=== PATIENT | male | born 1980 | race Caucasian/White ===

== ENCOUNTER 2017-03-30 10:54 | Emergency (ER) | payer OTHER | END 2017-03-30 12:34 | disposition left against medical advice (07) | LOC: UCCORT 10:54 | DX: M25.571 Pain in right ankle and joints of right foot (principal); M25.471 Effusion, right ankle; Z53.21 Procedure and treatment not carried out due to patient leaving prior to being seen by health care provider ==

== ENCOUNTER 2017-03-30 12:36 | Emergency (ER) | payer OTHER ==
[2017-03-30 13:03] VITALS: BP 156/96
--- NOTE | 2017-03-30 13:45 | UC ---
Lower Extremity/Ankle HPI - HPI Summary HPI Summary: This is a 37 yo male with h/o gout who presents with c/o ankle pain. He states that he rolled the ankle ~6d ago. He has been ambulating on it, but with a significant limp. His pain has been increasing significantly over the last few days. Denies associated fever or other acute illness - History of Current Complaint Chief Complaint: UCLowerExtremity Stated Complaint: RIGHT ANKLE PAIN - Allergies/Home Medications Allergies/Adverse Reactions: Allergies Allergy/AdvReac Type Severity Reaction Status Date / Time No Known Allergies Allergy Verified 03/30/17 12:55 Home Medications: Home Medications Ibuprofen [Advil] 800 mg PO ONCE PRN 03/30/17 [History Confirmed 03/30/17] PMH/Surg Hx/FS Hx/Imm Hx Previously Healthy: No - gout - Surgical History Surgical History: Yes Surgery Procedure, Year, and Place: BILATERAL CARPAL TUNNEL(age 23 yrs); TONSILECTOMY - Family History Known Family History: Positive: None, Hypertension, Other - MOTHER GOUT - Social History Alcohol Use: Rare Substance Use Type: None Smoking Status (MU): Current Every Day Smoker Type: Smokeless Tobacco Amount Used/How Often: 1can in 2 days Length of Time of Smoking/Using Tobacco: since age 25 Have You Smoked in the Last Year: Yes Review of Systems Constitutional: Negative Skin: Negative Eyes: Negative ENT: Negative Respiratory: Negative Cardiovascular: Negative Gastrointestinal: Negative Genitourinary: Negative Motor: Decreased ROM Neurovascular: Negative Musculoskeletal: Arthralgia, Decreased ROM Neurological: Negative Psychological: Negative All Other Systems Reviewed And Are Negative: Yes Physical Exam Triage Information Reviewed: Yes Appearance: Pain Distress - mild Vital Signs: Initial Vital Signs Temp 98 F 03/30/17 12:56 Pulse 83 03/30/17 12:56 Resp 18 03/30/17 12:56 BP 156/96 03/30/17 12:56 Pulse Ox 97 03/30/17 12:56 Vital Signs Reviewed: Yes Neck: Positive: Supple, Nontender, No Lymphadenopathy Respiratory: Positive: Chest non-tender, Lungs clear. Negative: Crackles, Rhonchi, Wheezing Cardiovascular: Positive: RRR, No Murmur Abdomen Description: Positive: Nontender Musculoskeletal: Positive: Other: - moderate ankle effusion, little focal TTP, no pain with dorsi/plantar flexion but pain with internal/external rotation Skin: Positive: Other - no ecchymosis or erythema. Negative: rashes Diagnostics - Laboratory Diagnostic Studies Completed/Ordered: XR R ankle - no fx, slight widening of the ankle mortise Lower Extremity Course/Dx - Course Course Of Treatment: This is a 37 yo gentleman who sustained a L ankle injury ~ 6 days ago who presented with increasing pain and inability to ambulate. XR shows no fx but evidence of widened mortise. Patient is quite convinced that his pain and swelling is not due to a ligamentous injury but rather a flare of his gout. Recommend immobilization of the L ankle, he does not fit in a CAM boot, but is willing to allow splinting. Ankle stirrup splint applied and referral initiated to ortho. - Differential Dx/Diagnosis Differential Diagnosis/HQI/PQRI: Arthritis, Contusion, Dislocation, Sprain, Strain Provider Diagnoses: 1. Acute L ankle pain - likely ligamentous injury Discharge - Discharge Plan Condition: Stable Disposition: HOME Prescriptions: Methylprednisolone [Medrol Dosepak 4 MG*] 4 mg PO .SEE ZAY INSTRUCTION #1 zay Patient Education Materials: Ankle Sprain (ED) Referrals: Dimitrios RIVERA,Ezequiel Howard [Primary Care Provider] - If Needed Monika Gonzalez MD [Medical Doctor] - 5 Days Additional Instructions: Instructions: 1. Stay in splint and use crutches to keep weight off of the ankle 2. Call the office of Dr Gonzalez to get an appointment for evaluation of possible ligamentous ankle injury 3. Take steroid medications as directed
--- NOTE | 2017-03-30 14:06 | RAD ---
INDICATION: Right ankle injury. TECHNIQUE: 3 views of the right ankle were obtained. FINDINGS: There is diffuse soft tissue swelling. No fracture is seen. There appears to be mild widening of the ankle mortise. IMPRESSION: DIFFUSE SOFT TISSUE SWELLING AND MILD WIDENING OF THE ANKLE MORTISE SUGGESTING THE POSSIBILITY OF UNDERLYING LIGAMENT INJURY. RECOMMEND ORTHOPEDIC CONSULTATION.
[2017-03-30] MEDS ORDERED: Ketorolac INJ* 30 MG/ML 1 ML VIAL IM ONE (14:24)
== END 2017-03-30 15:20 | disposition home or self-care (01) ==
LOC: UCCORT 12:36
DX: M25.571 Pain in right ankle and joints of right foot (principal); F17.210 Nicotine dependence, cigarettes, uncomplicated
CPT/HCPCS: 96372; 99212; G0463; J1885

== ENCOUNTER 2018-01-31 11:26 | Emergency (ER) | payer OTHER ==
--- NOTE | 2018-01-31 12:06 | UC ---
Lower Extremity/Ankle HPI - HPI Summary HPI Summary: Patient is complaining of sudden onset of pain and swelling to the top of his left foot into his left ankle. It began a week ago. He states that he has a history of gout mainly in the other foot - his great toe. He notes the onset this feels the same as gout. He has self treated with [id number] anti- inflammatory without relief. He notes that since the onset the top of the foot was itching. He itched the site aggressively and got an abrasion. He denies any fever or chills. He denies any rash. Does admit the area feels warm. No hx of injury. Patient states that he was treated with allopurinol in the past; however, he was unable to tolerate this. He states that the only thing that seems to work when he gets this bad is prednisone, " it is beyond indocin". States can usually control his gout with diet. - History of Current Complaint Hx Obtained From: Patient Onset/Duration: Sudden Onset Pain Intensity: 8 Aggravating Factor(s): Standing, Ambulation Alleviating Factor(s): Rest Able to Bear Weight: Yes - Risk Factors Septic Arthritis Risk Factor: Negative <Cecily Winchester - Last Filed: 01/31/18 12:54> <Bj Goodman - Last Filed: 01/31/18 13:20> - History of Current Complaint Chief Complaint: UCLowerExtremity Stated Complaint: LEFT FOOT/ANKLE COMPLAINT Time Seen by Provider: 01/31/18 11:51 - Allergies/Home Medications Allergies/Adverse Reactions: Allergies Allergy/AdvReac Type Severity Reaction Status Date / Time No Known Allergies Allergy Verified 01/31/18 11:46 Home Medications: Home Medications Multivitamin [Multiple Vitamins] 1 tab PO DAILY 01/31/18 [History Confirmed ] Naproxen TAB* [Naprosyn 250 mg TAB*] 500 mg PO Q8H PRN 01/31/18 [History Confirmed 01/31/18] PMH/Surg Hx/FS Hx/Imm Hx - Additional Past Medical History Additional PMH: gout - Surgical History Surgical History: Yes Surgery Procedure, Year, and Place: BILATERAL CARPAL TUNNEL(age 23 yrs); TONSILECTOMY - Family History Known Family History: Positive: None, Hypertension, Other - MOTHER GOUT - Social History Occupation: Employed Full-time Alcohol Use: Rare Substance Use Type: None Smoking Status (MU): Current Every Day Smoker Type: Smokeless Tobacco Amount Used/How Often: 1can in 2 days Length of Time of Smoking/Using Tobacco: since age 25 Have You Smoked in the Last Year: Yes - Immunization History Vaccination Up to Date: Yes <Cecily Winchester - Last Filed: 01/31/18 12:54> Review of Systems Constitutional: Negative Skin: Negative Eyes: Negative ENT: Negative Respiratory: Negative Cardiovascular: Negative Gastrointestinal: Negative Genitourinary: Negative Motor: Negative Neurovascular: Negative Musculoskeletal: Other: - pain/swelling L foot with swelling L ankle Neurological: Negative Psychological: Negative Is Patient Immunocompromised?: No All Other Systems Reviewed And Are Negative: Yes <Cecily Winchester - Last Filed: 01/31/18 12:54> Physical Exam Triage Information Reviewed: Yes Appearance: Well-Appearing Vital Signs: Initial Vital Signs Temp 96.7 F 01/31/18 11:44 Pulse 102 01/31/18 11:44 Resp 01/31/18 11:44 BP 151/86 01/31/18 11:44 Pulse Ox 98 01/31/18 11:44 Vital Signs Reviewed: Yes Eyes: Positive: Conjunctiva Clear ENT: Positive: Normal ENT inspection Neck: Positive: Supple Respiratory: Positive: Lungs clear, Normal breath sounds Cardiovascular: Positive: RRR, No Murmur Abdomen Description: Positive: Nontender, No Organomegaly, Soft Bowel Sounds: Positive: Present Musculoskeletal: Positive: Other: - LLE: hip, knee, calf without swelling or tenderness and active rom is painless. L ankle with mild swelling but no warmth or tenderness. L foot with mild swelling and warmth. There is a superficial abrasion to lateral foot without discharge. Dorsal foot is tender with more intense discomfort over 2nd metatarsal. s/v/m is intact. Neurological: Positive: Alert Psychological: Positive: Age Appropriate Behavior Skin Exam: Normal <Cecily Winchester - Last Filed: 01/31/18 12:54> Vital Signs: Initial Vital Signs Temp 96.7 F 01/31/18 11:44 Pulse 102 01/31/18 11:44 Resp 18 01/31/18 11:44 BP 151/86 01/31/18 11:44 Pulse Ox 98 01/31/18 11:44 <Bj Goodman - Last Filed: 01/31/18 13:20> Procedures - Procedure Summary Procedure Summary: abrasion L foot tx topical antibiotic and sterile gauze. <Cecily Winchester - Last Filed: 01/31/18 12:54> Diagnostics - Radiology No standard instances Radiology Interpretation Completed By: Radiologist - mild sts, OA(see full report) <Cecily Winchester - Last Filed: 01/31/18 12:54> Lower Extremity Course/Dx - Course Course Of Treatment: non toxic. no concern for septic joint. no osteomyelitis or fx on xray. acute onset suggests gout; however, given the abrasion , I will need to cover for possible infection as well. - Differential Dx/Diagnosis Provider Diagnoses: Acute pain/swelling L foot. Abrasion L foot. Probable gout. Possible early cellulitis <Cecily Winchester - Last Filed: 01/31/18 12:54> Discharge - Sign-Out/Discharge Documenting (check all that apply): Discharge/Admit/Transfer - Billing Disposition and Condition Condition: STABLE Disposition: Home <Cecily Winchester - Last Filed: 01/31/18 12:54> - Billing Disposition and Condition Condition: STABLE Disposition: Home <Bj Goodman - Last Filed: 01/31/18 13:20> - Discharge Plan Condition: Stable Disposition: HOME Prescriptions: Cephalexin CAP* [Keflex CAP*] 500 mg PO TID 10 Days #30 cap methylPREDNISolone [Medrol Dosepak 4 MG*] 0 mg PO .SEE ZAY INSTRUCTION #1 tab Patient Education Materials: Cellulitis (DC), Gout (ED) Forms: *Work Release Referrals: Ezequiel Louise [Primary Care Provider] - 2 Days Additional Instructions: CONTINUE YOUR CRUTCHES NEEDED. RECHECK BP ON FOLOW UP VISIT. GO TO ER FOR ANY WORSENING. Per institutional requirements, I have reviewed the chart, however, I was not consulted specifically or made aware of this patient by the above midlevel provider. I did not personally evaluate, interact with , or disposition this patient Addendum entered and electronically signed by Cecily Winchester PA 01/31/18 12:55 : Addendum Addendum: BP STILL ELEVATED ON REPEAT VS. WILL HAVE A RECHECK IN 2 DAYS ON FOLLOW UP. MAY BE PAIN RELATED.
--- NOTE | 2018-01-31 12:46 | RAD ---
INDICATION: Atraumatic left foot pain COMPARISON: None TECHNIQUE: AP, lateral, and oblique views were obtained. 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 There is no acute fracture.. There is minor soft tissue swelling over the dorsum of the forefoot IMPRESSION: NO ACUTE BONY FINDINGS. MINOR OSTEOARTHRITIS
[2018-01-31 12:50] VITALS: BP 141/79
[2018-01-31] MEDS ORDERED: Ibuprofen ADULT LIQ* 600 MG/30 ML UDC PO ONE (12:57)
== END 2018-01-31 13:09 | disposition home or self-care (01) ==
LOC: UCCORT 11:26
DX: M79.672 Pain in left foot (principal); S90.812A Abrasion, left foot, initial encounter; W50.4XXA Accidental scratch by another person, initial encounter; Y93.89 Activity, other specified; Y92.009 Unspecified place in unspecified non-institutional (private) residence as the place of occurrence of the external cause; F17.290 Nicotine dependence, other tobacco product, uncomplicated
CPT/HCPCS: 99212; A9270-GY; G0463

== ENCOUNTER 2018-02-03 12:56 | Emergency (ER) | payer OTHER ==
[2018-02-03 13:23] VITALS: BP 166/101
--- NOTE | 2018-02-03 13:26 | UC ---
Lower Extremity/Ankle HPI - HPI Summary HPI Summary: 37 yo male presents with left ankle and foot pain and swelling for the last 2 weeks. He was seen for this same issue a few days ago at our clinic and rx'd keflex and medrol dose thalia. He has been taking these as prescribed and feels his foot is improving, but not as quickly as it has in the past. He tells me that he has a history of gout in his ankle and foot that dose this once or twice a year, especially if he does not take care of it right away. He has been ambulating with crutches and is still in significant pain with weight bearing. Denies injury, fever, chills. - History of Current Complaint Chief Complaint: UCLowerExtremity Stated Complaint: LEFT ANKLE FOLLOW UP Time Seen by Provider: 02/03/18 13:26 Hx Obtained From: Patient Onset/Duration: Gradual Onset Severity Initially: Severe Severity Currently: Severe Pain Intensity: 8 Pain Scale Used: 0-10 Numeric Aggravating Factor(s): Standing, Ambulation Able to Bear Weight: Yes - Allergies/Home Medications Allergies/Adverse Reactions: Allergies Allergy/AdvReac Type Severity Reaction Status Date / Time No Known Allergies Allergy Verified 02/03/18 13:23 PMH/Surg Hx/FS Hx/Imm Hx - Additional Past Medical History Additional PMH: Gout - Surgical History Surgical History: Yes Surgery Procedure, Year, and Place: BILATERAL CARPAL TUNNEL(age 23 yrs); TONSILECTOMY - Family History Known Family History: Positive: None, Hypertension, Other - MOTHER GOUT - Social History Occupation: Employed Full-time Lives: With Family Alcohol Use: Rare Substance Use Type: None Smoking Status (MU): Current Every Day Smoker Type: Smokeless Tobacco Amount Used/How Often: 1can in 2 days Length of Time of Smoking/Using Tobacco: since age 25 Have You Smoked in the Last Year: Yes - Immunization History Vaccination Up to Date: Yes Review of Systems Constitutional: Negative Skin: Negative Respiratory: Negative Cardiovascular: Negative Neurovascular: Negative Musculoskeletal: Other: - Left foot and ankle pain and swelling Neurological: Negative Psychological: Negative All Other Systems Reviewed And Are Negative: Yes Physical Exam - Summary Physical Exam Summary: GENERAL: NAD. WDWN. No pain distress. SKIN: No rashes, sores, lesions, or open wounds. NECK: Supple. Nontender. No lymphadenopathy. CHEST: No accessory muscle use. Breathing comfortably and in no distress. CV: Pulses intact PT and DP. Brisk cap refill. MSK: Left ankle and foot: Moderate edema throughout. Mild erythema. No warmth. FROM. Strength 5/5. Negative talar tilt. No increased laxity. NEURO: Alert. Sensations intact and symmetric B/L LEs PSYCH: Age appropriate behavior. Triage Information Reviewed: Yes Vital Signs: Initial Vital Signs Temp 97.1 F 02/03/18 13:17 Pulse 97 02/03/18 13:17 Resp 20 02/03/18 13:17 BP 166/101 02/03/18 13:17 Pulse Ox 99 02/03/18 13:17 Lower Extremity Course/Dx - Course Course Of Treatment: He declined XR and labs at the time. I feel he needs a stronger dose of prednisone and will rx for this and have him stop the medrol thalia. I will also have him f/u with Orthopedics for further evaluation and clearance to return to work. - Differential Dx/Diagnosis Provider Diagnoses: Left ankle pain and swelling Discharge - Sign-Out/Discharge Documenting (check all that apply): Discharge/Admit/Transfer - Discharge Plan Condition: Stable Disposition: HOME Prescriptions: predniSONE TAB* [Deltasone 10 MG TAB*] 10 mg PO DAILY #30 tab Patient Education Materials: Low Purine Diet (ED), Gout (ED) Referrals: Dimitrios RIVERA,Ezequiel Howard [Primary Care Provider] - Watson Vázquez MD [Medical Doctor] - As Soon As Possible Additional Instructions: If you develop a fever, shortness of breath, chest pain, new or worsening symptoms - please call your PCP or go to the ED. Your blood pressure was high at todays visit. Please see your primary provider within 4 weeks for recheck and re-evaluation. 1) Please stop taking the medrol dose thalia and start the new prednisone taper 2) Please call Dr. Vázquez at the number below to schedule a follow up appointment as soon as possible - Billing Disposition and Condition Condition: STABLE Disposition: Home
== END 2018-02-03 13:56 | disposition home or self-care (01) ==
LOC: UCCORT 12:56
DX: M25.572 Pain in left ankle and joints of left foot (principal); M25.472 Effusion, left ankle; F17.210 Nicotine dependence, cigarettes, uncomplicated
CPT/HCPCS: 99212; G0463

== ENCOUNTER 2019-08-05 11:40 | Emergency (ER) | payer BC ==
[2019-08-05 13:15] VITALS: BP 138/89
--- NOTE | 2019-08-05 13:19 | UC ---
Eye Complaint HPI - HPI Summary HPI Summary: Per assistant teacher: "On morning pt started noticing pain, redness, and irritation in L eye. 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 Pt reports drainage and swelling. Denies changes in vision. " -he has been trying to remove on it his own, tried the "toilet paper trick" without success. no pain, no blury vision. doesnt have an eye dr. no drainage. - History of Current Complaint Chief Complaint: UCEye Stated Complaint: LT EYE COMPLAINT Time Seen by Provider: 08/05/19 13:12 Pain Intensity: 0 - Allergies/Home Medications Allergies/Adverse Reactions: Allergies Allergy/AdvReac Type Severity Reaction Status Date / Time No Known Allergies Allergy Verified 08/05/19 13:07 Home Medications: Home Medications Atorvastatin* [Lipitor 80 MG*] 80 mg PO DAILY 08/05/19 [History Confirmed ] Dapagliflozin 10 mg Tab (Nf) [Farxiga] 10 mg PO DAILY 08/05/19 [History Confirmed 08/05/19] metFORMIN* [Glucophage 1000 MG TAB *] 1,000 mg PO BID 08/05/19 [History Confirmed 08/05/19] PMH/Surg Hx/FS Hx/Imm Hx Previously Healthy: Yes Endocrine History: Diabetes - Surgical History Surgical History: Yes Surgery Procedure, Year, and Place: BILATERAL CARPAL TUNNEL(age 23 yrs); TONSILECTOMY - Family History Known Family History: Positive: None, Hypertension, Other - MOTHER GOUT - Social History Alcohol Use: Rare Substance Use Type: None Smoking Status (MU): Current Every Day Smoker Type: Smokeless Tobacco Amount Used/How Often: 1can in 2 days Length of Time of Smoking/Using Tobacco: since age 25 Have You Smoked in the Last Year: Yes - Immunization History Vaccination Up to Date: Yes Review of Systems All Other Systems Reviewed And Are Negative: Yes Constitutional: Positive: Negative Skin: Positive: Negative Eyes: Positive: Eye Redness ENT: Positive: Negative Respiratory: Positive: Negative Cardiovascular: Positive: Negative Neurological: Positive: Negative Psychological: Positive: Negative Is Patient Immunocompromised?: No Physical Exam Triage Information Reviewed: Yes Appearance: Well-Appearing, No Pain Distress, Well-Nourished Vital Signs: Initial Vital Signs Temp 97.9 F 08/05/19 13:08 Pulse 94 08/05/19 13:08 Resp 19 08/05/19 13:08 BP 138/89 08/05/19 13:08 Pulse Ox 99 08/05/19 13:08 Eyes: Positive: Other: - overall erythema to left eye. small dark spot over iris at 8 oclock. no dc. no bleeding. PERRL, EOMI. ENT: Positive: Pharynx normal, TMs normal Respiratory Exam: Normal Cardiovascular Exam: Normal Eye Complaint Course/Dx - Course Course Of Treatment: -tetracaine x 1 gtt was applied by myself for anesthesia. was unable to remove fb w/ very gentle attempt w/ swab. tolerated well. no other FB. no corneal abrasion or ulceration seen but needs eval and removal by optho. -recom ER [facility] for removal. understands importance. also given optho info to call Wednesday for virgilio appt in case he doesnt go to ER. do not rub eye. keep protected. no contacts. . - Differential Dx/Diagnosis Differential Diagnosis/HQI/PQRI: Penetrating Injury, Uveitis Provider Diagnosis: Foreign body of left eye Discharge ED - Sign-Out/Discharge Documenting (check all that apply): Patient Departure All imaging exams completed and their final reports reviewed: No Studies - Discharge Plan Condition: Stable Disposition: HOME Prescriptions: Gentamicin 0.3% OPHTH.SOLN* 1 drop LEFT EAR Q4H 5 Days #1 btl Patient Education Materials: Eye Foreign Body (ED) Referrals: Ezequiel Plunkett PA [Primary Care Provider] - Fred Eckert MD [Medical Doctor] - 2 Days Additional Instructions: I was unfortunately unable to remove the foreign body from your eye today. Youare given antibiotic drops to use regularly until you can be seen by the eye Dr . Please call the # given for the eye Dr on Wednesday to be seen. Alternatively , we atlked about going to the [facility] ER where they have Eye drs radio station manager prior , especially if your symptoms are getting worse. - Billing Disposition and Condition Condition: STABLE Disposition: Home
[2019-08-05] MEDS ORDERED: Tetracaine 0.5% OPTH.SOL 4 ML* 1 DROP BTL LEFT EYE SCH (13:30)
[2019-08-05] MEDS ORDERED: Tetracaine 0.5% OPTH.SOL 4 ML* 1 DROP BTL LEFT EYE ONE (13:33)
== END 2019-08-05 13:57 | disposition home or self-care (01) ==
LOC: UCCORT 11:40
DX: T15.92XA Foreign body on external eye, part unspecified, left eye, initial encounter (principal); E11.9 Type 2 diabetes mellitus without complications; F17.290 Nicotine dependence, other tobacco product, uncomplicated; Z79.84 Long term (current) use of oral hypoglycemic drugs; X58.XXXA Exposure to other specified factors, initial encounter; Y92.9 Unspecified place or not applicable
CPT/HCPCS: 99212; A9270-GY; G0463